=== PATIENT | female | born 1955 | race Caucasian/White ===

== ENCOUNTER 2016-08-15 09:53 | Outpatient (CLI) | payer OTHER ==
[~2016-08-15 09:53] MED LIST: ALBU8.5H8 INH; CETI1TAB2 PO; ESTR0.623 PO; FLO44 INH; MONT10TA25 PO; PRO20 PO
== END 2016-08-15 19:44 | disposition home or self-care (01) ==
LOC: SMI 09:53
PROVIDERS: ATTEND Internal Medicine
DX: M47.896 Other spondylosis, lumbar region (principal); N28.1 Cyst of kidney, acquired
CPT/HCPCS: 72148

== ENCOUNTER 2016-09-12 08:08 | Outpatient (CLI) | payer OTHER ==
[2016-09-12 09:05] LABS: CREATININE 1.04 mg/dL (0.55-1.30); POTASSIUM 4.3 mmol/L (3.5-5.1); TOTAL BILIRUBIN 1.1 mg/dL (0.0-1.0); TOTAL PROTEIN, SERUM 7.1 g/dL (6.4-8.3)
== END 2016-09-12 20:51 | disposition home or self-care (01) ==
LOC: SRD 08:08
DX: I10 Essential (primary) hypertension (principal)
CPT/HCPCS: 36415; 80053; 80061

== ENCOUNTER 2017-05-14 10:11 | Outpatient (CLI) | payer OTHER ==
[2017-05-14 13:42] LABS: CALCIUM 8.7 mg/dL (8.4-11.0); CREATININE 1.14 mg/dL (0.55-1.30); POTASSIUM 4.3 mmol/L (3.5-5.1)
[2017-05-14 13:47] LABS: ALBUMIN 3.9 g/dL (3.4-4.8); TOTAL BILIRUBIN 1.1 mg/dL (0.0-1.0)
== END 2017-05-14 20:51 | disposition home or self-care (01) ==
LOC: SLB 10:11
PROVIDERS: ATTEND Internal Medicine Cardiovascular Disease
DX: I10 Essential (primary) hypertension (principal); E78.5 Hyperlipidemia, unspecified
CPT/HCPCS: 36415; 80053; 80061

== ENCOUNTER 2017-07-03 11:09 | Outpatient (CLI) | payer OTHER ==
[2017-07-03 11:50] LABS: BASOPHILS % (AUTO) 0.8 % (0.0-2.0); EOSINOPHILS # (AUTO) 0.2 K/uL (0.0-0.4); EOSINOPHILS % (AUTO) 3.8 % (0.0-4.0); HEMATOCRIT 40.7 % (36-48); HEMOGLOBIN 13.5 g/dL (12.0-16.0); LYMPHOCYTES # (AUTO) 1.6 K/uL (1.0-5.5); LYMPHOCYTES % (AUTO) 30.3 % (20.5-51.5); MEAN CORPUSCULAR HEMOGLOBIN 31 pg (27-31); MEAN CORPUSCULAR HGB CONC 33 % (32-36); MEAN CORPUSCULAR VOLUME 94 fL (79.0-98.0); MONOCYTES # (AUTO) 0.4 K/uL (0.0-1.0); MONOCYTES % (AUTO) 6.8 % (1.7-9.3); NEUTROPHILS % (AUTO) 58.3 % (40.0-70.0); PLATELET COUNT (AUTO) 218 K/uL (130-430); RED BLOOD CELL COUNT(AUTO) 4.35 MIL/uL (4.2-6.2); RED CELL DISTRIBUTION WIDTH 12.1 % (9.0-15.0); WHITE BLOOD COUNT (AUTO) 5.2 K/uL (4.8-10.8)
[2017-07-03 12:11] LABS: CALCIUM 9.2 mg/dL (8.4-11.0); CREATININE 1.05 mg/dL (0.55-1.30); POTASSIUM 4.2 mmol/L (3.5-5.1)
[2017-07-03 12:47] LABS: PROTHROMBIN TIME 10.2 SECS (9.5-12.5)
== END 2017-07-03 18:58 | disposition home or self-care (01) ==
LOC: SLB 11:09
PROVIDERS: ATTEND Neurological Surgery
DX: Z01.818 Encounter for other preprocedural examination (principal); M47.899 Other spondylosis, site unspecified; R05 Cough
CPT/HCPCS: 36415; 71046-TC; 80048; 85025; 85610-TC; 85730-TC

== ENCOUNTER 2017-07-09 05:45 | Day surgery (SDC) | payer OTHER ==
[~2017-07-09] VITALS: Ht 157.5 cm; Wt 84.4 kg
[2017-07-09] MEDS ORDERED: POLYMYXIN 500,000/BACIT.10,000 UNITS in NS IRR 1 L IR ONE (07:20)
[2017-07-09] MEDS ORDERED: ALBUTEROL SULFATE 0.083% 2.5 MG/3 ML VIAL.NEB INH ONE ×4 (07:30→09:45)
[2017-07-09] MEDS ORDERED: fentaNYL CITRATE/PF 100 MCG/2 ML AMP IVP PRN ×2 (09:15)
[2017-07-09] MEDS ORDERED: METOCLOPRAMIDE HCL 10 MG/2 ML VIAL IVP PRN (09:15)
[2017-07-09] MEDS ORDERED: HYDROmorphone 1 MG INJ. 1 MG/ML AMPUL IVP PRN (09:15)
[2017-07-09] MEDS ORDERED: HYDROmorphone 1 MG INJ. 1 MG/ML AMPUL ONE (09:55)
[2017-07-09 11:12] VITALS: BP_SYST 103
[2017-07-09] MEDS ORDERED: HYDROcodone/ACETAMIN 5-325 MG TAB (NORCO/ VICODIN) ONE (11:23)
[2017-07-09] MEDS ORDERED: HYDROcodone/ACETAMIN 5-325 MG TAB (NORCO/ VICODIN) PO ONE (11:30)
== END 2017-07-09 12:30 | disposition home or self-care (01) ==
LOC: SMU 05:45 → SDS 05:45
PROVIDERS: ATTEND Neurological Surgery
DX: M48.061 Spinal stenosis, lumbar region without neurogenic claudication (principal); M43.16 Spondylolisthesis, lumbar region; Z88.8 Allergy status to other drugs, medicaments and biological substances; J45.909 Unspecified asthma, uncomplicated; I10 Essential (primary) hypertension; I21.3 ST elevation (STEMI) myocardial infarction of unspecified site; M19.90 Unspecified osteoarthritis, unspecified site; E78.5 Hyperlipidemia, unspecified; E66.9 Obesity, unspecified
CPT/HCPCS: 63047; 76000; 94640; 94760; 95861; C1713; J1170; J7120

== ENCOUNTER 2017-08-20 13:39 | Outpatient (CLI) | payer OTHER | END 2017-08-20 19:58 | disposition home or self-care (01) | LOC: SRD 13:39 | PROVIDERS: ATTEND Neurological Surgery | DX: M43.16 Spondylolisthesis, lumbar region (principal); M48.061 Spinal stenosis, lumbar region without neurogenic claudication; Z98.890 Other specified postprocedural states | CPT/HCPCS: 72100-TC ==

== ENCOUNTER 2017-09-16 12:16 | Outpatient (CLI) | payer OTHER ==
[2017-09-16 14:12] LABS: CALCIUM 9.7 mg/dL (8.4-11.0); CREATININE 0.94 mg/dL (0.55-1.30); POTASSIUM 4.5 mmol/L (3.5-5.1)
== END 2017-09-16 19:59 | disposition home or self-care (01) ==
LOC: SLB 12:16
PROVIDERS: ATTEND Internal Medicine Cardiovascular Disease
DX: I10 Essential (primary) hypertension (principal); E78.5 Hyperlipidemia, unspecified; I25.10 Atherosclerotic heart disease of native coronary artery without angina pectoris
CPT/HCPCS: 36415; 80048

== ENCOUNTER 2017-10-14 09:00 | Outpatient (CLI) | payer OTHER | END 2017-10-14 20:42 | disposition home or self-care (01) | LOC: SMI 09:00 | PROVIDERS: ATTEND Neurological Surgery | DX: M51.26 Other intervertebral disc displacement, lumbar region (principal); M48.061 Spinal stenosis, lumbar region without neurogenic claudication; M47.896 Other spondylosis, lumbar region; M43.26 Fusion of spine, lumbar region; D75.89 Other specified diseases of blood and blood-forming organs; R60.0 Localized edema; Z98.890 Other specified postprocedural states | CPT/HCPCS: 72110; 72148 ==

== ENCOUNTER 2017-11-15 07:00 | Outpatient (CLI) | payer OTHER ==
[~2017-11-15] VITALS: Ht 157.5 cm; Wt 85.7 kg
[2017-11-15] MEDS ORDERED: REGADENOSON 0.4 MG/5 ML SYRINGE IVP ONE (08:45)
== END 2017-11-15 20:17 | disposition home or self-care (01) ==
LOC: SNM 07:00
PROVIDERS: ATTEND Internal Medicine Cardiovascular Disease
DX: R07.89 Other chest pain (principal); I10 Essential (primary) hypertension; E78.5 Hyperlipidemia, unspecified; J45.909 Unspecified asthma, uncomplicated
CPT/HCPCS: 78452; 93017; A9500; J2785

== ENCOUNTER 2017-12-02 14:02 | Outpatient (CLI) | payer OTHER | END 2017-12-02 20:14 | disposition home or self-care (01) | LOC: SMA 14:02 | PROVIDERS: ATTEND Internal Medicine | DX: Z12.31 Encounter for screening mammogram for malignant neoplasm of breast (principal) | CPT/HCPCS: 77067 ==